=== PATIENT | male | born 2000 | race Caucasian/White ===

== ENCOUNTER → 2021-10-08 | Outpatient (CLI) | payer MEDICAID ==
--- NOTE | 2021-10-08 18:16 | Diagnostic Imaging Report ---
EXAMINATION: Chest (PA and lateral). CLINICAL INDICATION: 21-year-old male, chest tightness and chest wall pain. Cough. COMPARISON: None. FINDINGS: Heart size and mediastinal contours are unremarkable. There is no identified pneumothorax. There is no pleural effusion. There is no identified focal airspace consolidation. IMPRESSION: No identified acute cardiopulmonary abnormality. Dictated by: Dictated on workstation # [id number]
== END ==
LOC: RAD FS 17:40
PROVIDERS: ATTEND Nurse Practitioner Family
DX: R07.89 Other chest pain (principal); R05.9 Cough, unspecified
CPT/HCPCS: 71046

== ENCOUNTER 2022-04-04 00:08 | Emergency (ER) | payer MEDICAID ==
[~2022-04-04] VITALS: Ht 175.5 cm; Wt 91.0 kg
[2022-04-04 00:28] LABS: BASOPHILS # (AUTO) 0.1 10^3/uL (0.0-0.1); BASOPHILS % (AUTO) 1 % (0-10); EOSINOPHILS # (AUTO) 0.2 10^3/uL (0.0-0.3); EOSINOPHILS % (AUTO) 2 % (0-10); HEMATOCRIT 43 % (40-54); HEMOGLOBIN 14.3 g/dL (13.3-17.7); LYMPHOCYTES # (AUTO) 2.8 10^3/uL (1.0-4.0); LYMPHOCYTES % (AUTO) 28 % (12-44); MEAN CORPUSCULAR HEMOGLOBIN 31 pg (25-34); MEAN CORPUSCULAR HGB CONC 34 g/dL (32-36); MEAN CORPUSCULAR VOLUME 92 fL (80-99); MEAN PLATELET VOLUME 8.7 fL (9.0-12.2); MONOCYTES # (AUTO) 0.9 10^3/uL (0.0-1.0); MONOCYTES % (AUTO) 9 % (0-12); NEUTROPHILS # (AUTO) 6.1 10^3/uL (1.8-7.8); NEUTROPHILS % (AUTO) 60 % (42-75); PLATELET COUNT 327 10^3/uL (130-400); WHITE BLOOD COUNT 10.1 10^3/uL (4.3-11.0)
[2022-04-04 00:31] VITALS: BP 138/73
--- NOTE | 2022-04-04 00:34 | ED Psychosocial ---
General Chief Complaint: Suicidal Ideation Risk Stated Complaint: SUICIDAL FEELINGS Source: patient, family Exam Limitations: no limitations History of Present Illness Date Seen by Provider: Apr 04, 2022 Time Seen by Provider: 00:12 Initial Comments 22yoM with PMH of depression on Zoloft and Atarax coming in with his father due to passive suicidal ideation. He has no specific plan at this time. His sister this year and he has not been doing as well as previous. In the past he has cut himself, but has not done that within the past 6 months. Denies doing anything to harm himself recently. Feels like mostly this. Passive that he does not want to live. He does not feel like his medications are doing as well. He is to go to counseling, but he also did not feel like that was helping, so he stopped. His father stresses concerned that he just lays in bed and does not seem to want to interact with anybody. Apparently he posted on Facebook up home that concerned a lot of family members that he was wanting to hurt himself. He is otherwise denying any physical complaints including any chest pain, shortness of breath, abdominal pain, nausea, vomiting, diarrhea, fever, chills, weakness, numbness, rash, or any other concerns. He is up-to-date on his vaccines including tetanus Allergies and Home Medications Allergies Coded Allergies: No Known Drug Allergies (Unverified , 04/04/22) Patient Home Medication List Home Medication List Reviewed: Yes Review of Systems Constitutional: No fever EENTM: No blurred vision Respiratory: No cough Cardiovascular: No chest pain Gastrointestinal: No abdominal pain Genitourinary: no symptoms reported Musculoskeletal: no symptoms reported Skin: no symptoms reported Psychiatric/Neurological: Depressed All Other Systems Reviewed Negative Unless Noted: Yes Past Airjouc-Lyxnsz-Euvzyd Hx Patient Social History Tobacco Use?: No Substance use?: No Alcohol Use?: No Past Medical History Surgeries: No Physical Exam Vital Signs - First Documented 04/04/22 00:31 Temp 36.8 Pulse 73 Resp 16 B/P (MAP) 138/73 (94) Capillary Refill : Height, Weight, BMI Height: '" Weight: lbs. oz. kg; BMI Method: General Appearance: WD/WN, no apparent distress HEENT: PERRL/EOMI, normal ENT inspection, pharynx normal Neck: non-tender, full range of motion, supple, normal inspection Respiratory: chest non-tender, lungs clear, normal breath sounds, no respiratory distress, no accessory muscle use Cardiovascular: regular rate, rhythm, no edema, no murmur Gastrointestinal: normal bowel sounds, non tender, soft; No distended, No guarding, No rebound Extremities: normal range of motion, non-tender, normal inspection, no pedal edema, no calf tenderness, normal capillary refill Neurologic/Psychiatric: no motor/sensory deficits, alert, normal mood/affect Appearance/Memory: disheveled Behavior/Eye Contact: cooperative, good eye contact, normal speech Thoughts/Hallucinations: no apparent hallucination Skin: normal color, warm/dry Lymphatic: no adenopathy Progress/Results/Core Measures Results/Orders Lab Results Laboratory Tests Test 04/04/22 00:15 04/04/22 00:30 Range/Units White Blood Count 10.1 4.3-11.0 10^3/uL Red Blood Count 4.64 4.30-5.52 10^6/uL Hemoglobin 14.3 13.3-17.7 g/dL Hematocrit 43 40-54 % Mean Corpuscular Volume 92 80-99 fL Mean Corpuscular Hemoglobin 31 25-34 pg Mean Corpuscular Hemoglobin Concent 34 32-36 g/dL Red Cell Distribution Width 13.7 10.0-14.5 % Platelet Count 327 130-400 10^3/uL Mean Platelet Volume 8.7 L 9.0-12.2 fL Immature Granulocyte % (Auto) 1 % Neutrophils (%) (Auto) 60 42-75 % Lymphocytes (%) (Auto) 28 12-44 % Monocytes (%) (Auto) 9 0-12 % Eosinophils (%) (Auto) 2 0-10 % Basophils (%) (Auto) 1 0-10 % Neutrophils # (Auto) 6.1 1.8-7.8 10^3/uL Lymphocytes # (Auto) 2.8 1.0-4.0 10^3/uL Monocytes # (Auto) 0.9 0.0-1.0 10^3/uL Eosinophils # (Auto) 0.2 0.0-0.3 10^3/uL Basophils # (Auto) 0.1 0.0-0.1 10^3/uL Immature Granulocyte # (Auto) 0.1 0.0-0.1 10^3/uL Urine Color YELLOW Urine Clarity CLEAR Urine pH 6.0 5-9 Urine Specific [place] >=1.030 1.016-1.022 Urine Protein NEGATIVE NEGATIVE Urine Glucose (UA) NEGATIVE NEGATIVE Urine Ketones NEGATIVE NEGATIVE Urine Nitrite NEGATIVE NEGATIVE Urine Bilirubin NEGATIVE NEGATIVE Urine Urobilinogen 0.2 < = 1.0 MG/DL Urine Leukocyte Esterase NEGATIVE NEGATIVE Urine RBC (Auto) NEGATIVE NEGATIVE Urine RBC RARE /HPF Urine WBC NONE /HPF Urine Crystals NONE /LPF Urine Bacteria TRACE /HPF Urine Casts NONE /LPF Urine Mucus LARGE H /LPF Urine Culture Indicated NO Sodium Level 141 135-145 MMOL/L Potassium Level 4.1 3.6-5.0 MMOL/L Chloride Level 107 98-107 MMOL/L Carbon Dioxide Level 23 21-32 MMOL/L Anion Gap 11 5-14 MMOL/L Blood Urea Nitrogen 11 7-18 MG/DL Creatinine 0.88 0.60-1.30 MG/DL Estimat Glomerular Filtration Rate 125 BUN/Creatinine Ratio 13 Glucose Level 126 H 70-105 MG/DL Calcium Level 9.6 8.5-10.1 MG/DL Corrected Calcium 9.4 8.5-10.1 MG/DL Total Bilirubin 0.2 0.1-1.0 MG/DL Aspartate Amino Transf (AST/SGOT) 17 5-34 U/L Alanine Aminotransferase (ALT/SGPT) 19 0-55 U/L Alkaline Phosphatase 137 H 40-136 U/L Total Protein 7.3 6.4-8.2 GM/DL Albumin 4.3 3.2-4.5 GM/DL Salicylates Level < 0.3 L 5.0-20.0 MG/DL Urine Opiates Screen NEGATIVE NEGATIVE Urine Oxycodone Screen NEGATIVE NEGATIVE Urine Methadone Screen NEGATIVE NEGATIVE Urine Propoxyphene Screen NEGATIVE NEGATIVE Urine Barbiturates Screen NEGATIVE NEGATIVE Ur Tricyclic Antidepressants Screen NEGATIVE NEGATIVE Urine Phencyclidine Screen NEGATIVE NEGATIVE Urine Amphetamines Screen NEGATIVE NEGATIVE Urine Methamphetamines Screen NEGATIVE NEGATIVE Urine Benzodiazepines Screen NEGATIVE NEGATIVE Urine Cocaine Screen NEGATIVE NEGATIVE Urine Cannabinoids Screen NEGATIVE NEGATIVE Serum Alcohol < 10 <10 MG/DL SARS-CoV-2 RNA (RT-PCR) Not Detected Not Detecte My Orders Orders - NICOLA JEFFRIES MD Cbc With Automated Diff (04/04/22 00:13) Alcohol (04/04/22 00:13) Salicylate (04/04/22 00:26) Ekg Tracing (04/04/22:) Bh Status Checks/Observation O Q15M (04/04/22:) Comprehensive Metabolic Panel (04/04/22:) Covid 19 Inhouse Test (04/04/22:) Alcohol (04/04/22:) Cbc With Automated Diff (04/04/22:) Drug Screen Stat (Urine) (04/04/22:) Ua Culture If Indicated (04/04/22) Vital Signs/I&O 04/04/22 00:31 Temp 36.8 Pulse 73 Resp 16 B/P (MAP) 138/73 (94) Progress Progress Note : Progress Note 22-year-old male with above history coming in due to passive suicidal ideation. ABCs were intact and vitals are stable on presentation. Physical exam reassuring with no acute abnormalities. Typical psychiatric screening labs were performed. He has no physical complaints at this time, and from an emergency department standpoint he is cleared for mental health evaluation. After the patient was screened, they came up with a safety plan for him to go home with. Initial ECG Impression Date: Apr 04, 2022 Initial ECG Impression Time: 00:25 Initial ECG Rate: 66 Initial ECG Rhythm: Normal Sinus Comment Narrow QRS, normal axis, no significant ST changes or T wave abnormalities Departure Impression Primary Impression: Passive suicidal ideations Disposition: 01 HOME, SELF-CARE Condition: Stable Departure-Patient Inst. Decision time for Depature: 03:59 Referrals: GREY SARAVIA APRN (PCP/Family) Primary Care Physician Patient Instructions: OUTPT MENTAL HEALTH SERVICES Add. Discharge Instructions: Please follow-up with his regular doctor to discuss medication changes. There is any change in thoughts, and he develops a plan to harm himself, please bring him back to the ER. Work/School Note: Family Work Note Patient Received Medical Care In the Emergency Department On: Apr 04, 2022 Patient Will Be Able to Return to Work/School On: Apr 05, 2022 NICOLA JEFFRIES MD Apr 04, 2022 00:34
[2022-04-04 00:37] LABS: BACTERIA,URINE TRACE /HPF; BILIRUBIN,URINE NEGATIVE (NEGATIVE); CLARITY,URINE CLEAR; COLOR,URINE YELLOW; GLUCOSE, URINE (UA) NEGATIVE (NEGATIVE); KETONES,URINE NEGATIVE (NEGATIVE); LEUKOCYTE ESTERASE ,URINE NEGATIVE (NEGATIVE); NITRITE,URINE NEGATIVE (NEGATIVE); PROTEIN,URINE NEGATIVE (NEGATIVE); RBC,URINE RARE /HPF
[2022-04-04 00:40] LABS: AMPHETAMINE SCREEN, URINE NEGATIVE (NEGATIVE); BARBITURATE SCREEN URINE NEGATIVE (NEGATIVE); BENZODIAZEPINES SCREEN URINE NEGATIVE (NEGATIVE); CANNABINOID SCREEN, URINE NEGATIVE (NEGATIVE); COCAINE SCREEN URINE NEGATIVE (NEGATIVE); METHADONE STAT NEGATIVE (NEGATIVE); OPIATE SCREEN URINE NEGATIVE (NEGATIVE); OXYCODONE STAT NEGATIVE (NEGATIVE); PROPOXYPHENE STAT NEGATIVE (NEGATIVE); TRICYCLIC ANTIDEPRESSANTS SCRE NEGATIVE (NEGATIVE)
[2022-04-04 00:54] LABS: ALANINE AMINOTRANSFERASE 19 U/L (0-55); ALKALINE PHOSPHATASE 137 U/L (40-136); BILIRUBIN,TOTAL 0.2 MG/DL (0.1-1.0); BUN/CREATININE RATIO 13; CALCIUM 9.6 MG/DL (8.5-10.1); CARBON DIOXIDE 23 MMOL/L (21-32); CHLORIDE 107 MMOL/L (98-107); CREATININE SERUM 0.88 MG/DL (0.60-1.30); GFR ESTIMATED 125; GLUCOSE 126 MG/DL (70-105); POTASSIUM 4.1 MMOL/L (3.6-5.0); SODIUM 141 MMOL/L (135-145); TOTAL PROTEIN 7.3 GM/DL (6.4-8.2)
[2022-04-04 00:55] LABS: ALBUMIN 4.3 GM/DL (3.2-4.5); SALICYLATE < 0.3 MG/DL (5.0-20.0)
== END 2022-04-04 04:03 | disposition home or self-care (01) ==
LOC: EDUNIT# 00:08 → ER FS 00:11
DX: R45.851 Suicidal ideations (principal); F32.A Depression, unspecified; Z20.822 Contact with and (suspected) exposure to COVID-19; Z79.899 Other long term (current) drug therapy
CPT/HCPCS: 36415; 80053; 80306; 80320; 80329; 81000; 85025; 87636; 93005

== ENCOUNTER 2022-07-08 15:52 | Emergency (ER) | payer MEDICAID ==
[~2022-07-08] VITALS: Ht 172 cm; Wt 90.0 kg
[2022-07-08] MEDS ORDERED: ONDANSETRON 4 MG (ZOFRAN) ORAL DISSOLVE TAB SL STA (16:08)
[2022-07-08] MEDS ORDERED: ONDA4TAB11 SL (16:11)
--- NOTE | 2022-07-08 16:11 | ED General ---
General Chief Complaint: Abdominal/GI Problems Stated Complaint: TWITCHING , VOMIT, FEVER, HEADACHE, Source of Information: Patient Exam Limitations: No Limitations History of Present Illness Date Seen by Provider: Jul 08, 2022 Time Seen by Provider: 16:00 Initial Comments This 22-year-old gentleman presents to the emergency room accompanied by his father. He describes symptoms of vomiting, cough, diarrhea, and fever since yesterday. He has taken ibuprofen. He is no longer febrile. He also has some intermittent brief twitching of the upper extremities which appear like a shiver to this examiner. His primary care provider is Grey Douglass. Allergies and Home Medications Allergies Coded Allergies: No Known Drug Allergies (Unverified , 04/04/22) Patient Home Medication List Home Medication List Reviewed: Yes Ondansetron (Ondansetron Odt) 4 Mg Tab.rapdis, 4 MG SL Q4H PRN for NAUSEA/VOMITING Prescribed by: TEN MEDINA on 07/08/22 1611 Review of Systems Review of Systems Constitutional: see HPI EENTM: no symptoms reported Respiratory: see HPI Cardiovascular: no symptoms reported Gastrointestinal: see HPI Genitourinary: no symptoms reported Musculoskeletal: no symptoms reported Skin: no symptoms reported Psychiatric/Neurological: See HPI Hematologic/Lymphatic: No Symptoms Reported Immunological/Allergic: no symptoms reported Past Gnnhqma-Vgspag-Ymhhol Hx Patient Social History Tobacco Use?: No Use of E-Cig and/or Vaping dev: No Substance use?: No Alcohol Use?: No Past Medical History Surgeries: No Respiratory: No Cardiac: No Neurological: No Genitourinary: No Gastrointestinal: No Musculoskeletal: No Endocrine: No HEENT: No Cancer: No Psychosocial: No Depression Integumentary: No Physical Exam Vital Signs Vital Signs - First Documented 07/08/22 16:07 Temp 36.8 Pulse 78 Resp 16 B/P (MAP) 129/85 (100) Pulse Ox 97 O2 Delivery Room Air Capillary Refill : Height, Weight, BMI Height: '" Weight: lbs. oz. 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 Occasional shiver like tremors of the upper extremities.) Skin: Normal Color, Warm/Dry Progress/Results/Core Measures Suspected Sepsis SIRS Temperature: Pulse: Respiratory Rate: Blood Pressure / Mean: Results/Orders Lab Results Laboratory Tests Test 07/08/22 16:10 Range/Units Influenza Type A (RT-PCR) Not Detected Not Detecte Influenza Type B (RT-PCR) Not Detected Not Detecte SARS-CoV-2 RNA (RT-PCR) Not Detected Not Detecte Group A Streptococcus Screen NEGATIVE NEGATIVE My Orders Orders - TEN READ MD Rapid Strep A Screen (07/08/22 16:08) Covid 19 Inhouse Test (07/08/22 16:08) Influenza A And B By Pcr (07/08/22 16:08) Ondansetron Oral Dissolve Tab (Zofran (07/08/22 16:08) Vital Signs/I&O 07/08/22 07/08/22 16:07 16:55 Temp 36.8 36.8 Pulse 78 78 Resp 16 16 B/P (MAP) 129/85 (100) 129/85 Pulse Ox 97 97 O2 Delivery Room Air Room Air Capillary Refill : Progress Note : Progress Note Patient was treated with Zofran. Viral swabs were negative. See discharge instructions for further discussion. Departure Impression Primary Impression: Flu-like symptoms Disposition: 01 HOME, SELF-CARE Condition: Improved Departure-Patient Inst. Decision time for Depature: 16:10 Referrals: GREY SARAVIA APRN (PCP/Family) Primary Care Physician Add. Discharge Instructions: You may take Tylenol (acetaminophen) up to 1000 mg every 6 hours and/or ibuprofen up to 600 mg every 6 hours as needed for pain or fever. You may also use Tylenol or ibuprofen for shivering. If you continue to have symptoms beyond this week, follow-up with your primary care provider and inquire about testing for mono. Drink plenty of clear liquids to stay well-hydrated. You may use Zofran (ondansetron) as prescribed for nausea or vomiting. Return to the ER if you have worsening symptoms despite following these instructions. All discharge instructions reviewed with patient and/or family. Voiced understanding. Scripts Ondansetron (Ondansetron Odt) 4 Mg Tab.rapdis 4 MG SL Q4H PRN for NAUSEA/VOMITING, #10 TAB Prov: TEN READ MD 07/08/22 TEN READ MD Jul 08, 2022 16:11
[2022-07-08 16:55] VITALS: BP 129/85
== END 2022-07-08 16:55 | disposition home or self-care (01) ==
LOC: EDUNIT# 15:52 → ER FS 15:57
DX: R05.9 Cough, unspecified (principal); R50.9 Fever, unspecified; R19.7 Diarrhea, unspecified; R51.9 Headache, unspecified; R11.10 Vomiting, unspecified; Z20.822 Contact with and (suspected) exposure to COVID-19
CPT/HCPCS: 87430; 87636; 99283